=== PATIENT | female | born 1945 | race Caucasian/White ===

== ENCOUNTER 2018-01-09 16:42 | Observation (INO) | payer MEDICARE ==
[~2018-01-09] VITALS: Ht 152.4 cm; Wt 91.6 kg
[~2018-01-09 16:42] MED LIST: ADV250 IH; ASPI-555 PO; BIOTIN PO; CETI-101 PO; COQ10 PO; DIGOXIN PO; ESCITALOPRAM PO; FLUTICASONE NASAL; FURO-152 PO; LORA2TAB2 PO; LUTE20TA PO; LYRICA PO; MONT10TA21 PO; OMEG1CAP31 PO; PREG150C PO; RANI150T7 PO; TIOT18CA3 IH; [UNRECOGNIZED DRUG - OTHER] PO; [UNRECOGNIZED DRUG - OTHER] PO
[2018-01-09 17:37] LABS: INR 0.98 (0.85-1.15); PARTIAL THROMBOPLASTIN TIME 24.4 SEC (26.3-35.5); PROTHROMBIN TIME 10.3 SEC (9.6-11.6)
[2018-01-09 17:39] LABS: BASOPHILS % (AUTO) 0.7 % (0.0-5.0); EOSINOPHILS % (AUTO) 2.6 % (0.0-8.0); HEMATOCRIT 40.6 % (36-48); MEAN CORPUSCULAR HEMOGLOBIN 26.9 pg (27.0-33.0); MEAN CORPUSCULAR HGB CONC 33.1 g/dL (32.0-36.0); MEAN CORPUSCULAR VOLUME 81.3 fL (79-99); MONOCYTES % (AUTO) 7.6 % (3.0-13.0); NEUTROPHILS % (AUTO) 53.1 % (40.0-77.0); NUCLEATED RED BLOOD CELLS 0.1 % (0.0-0.19); RED CELL DISTRIBUTION WIDTH 15.9 % (11.0-15.5); WHITE BLOOD COUNT (AUTO) 8.8 K/uL (4.8-10.8)
[2018-01-09 17:41] LABS: CREATININE 0.5 mg/dL (0.5-1.5); POTASSIUM 3.7 mmol/L (3.5-5.1)
[2018-01-09 17:56] LABS: ALBUMIN 3.4 g/dL (3.5-5.0); BILIRUBIN,TOTAL 0.7 mg/dL (0.2-1.0); CREATINE KINASE MB 0.9 ng/mL (0.5-3.6); TOTAL PROTEIN, SERUM 7.2 g/dL (6.0-8.3)
[2018-01-09 18:10] LABS: PLATELET COUNT (AUTO) 228 K/uL (130-400)
[2018-01-09 19:04] LABS: APPEARANCE,URINE Clear (CLEAR); BILIRUBIN,URINE Negative (NEGATIVE); COLOR,URINE Yellow (YELLOW); GLUCOSE, URINE (UA) Negative (NEGATIVE); KETONES,URINE Negative (NEGATIVE); LEUKOCYTE ESTERASE ,URINE Trace (NEGATIVE); NITRATE,URINE Negative (NEGATIVE); OCCULT BLOOD,URINE Negative (NEGATIVE); PROTEIN,URINE Negative (NEGATIVE)
[2018-01-09 19:41] LABS: BACTERIA,URINE Rare /HPF (None Seen); RBC,URINE 0-1 /HPF (0-1); SQUAMOUS EPITHELIAL CELL,UR Rare /LPF (0-2); TRANSITIONAL EPI CELLS,URINE Rare /LPF (None Seen); WBC,URINE 0-1 /HPF (0-1)
[2018-01-09] MEDS ORDERED: SODIUM CHLORIDE 0.9% 1000ML 1,000 ML IV ONE (22:58)
[2018-01-09] MEDS ORDERED: ASPIRIN 325 MG TABLET ONE (22:58)
[2018-01-09 23:57] LABS: CREATINE KINASE MB 0.9 ng/mL (0.5-3.6); CREATINE KINASE, TOTAL 64 U/L (21-232); MYOGLOBIN 41 ng/mL (10-92); TROPONIN I < 0.04 ng/mL (0.00-0.06)
[2018-01-10] MEDS ORDERED: POTASSIUM CHLORIDE 10% ELIXIR 20 MEQ/15 ML UDCUP PO PRN (01:30)
[2018-01-10] MEDS ORDERED: IPRATROPIUM/ALBUTEROL SULFATE 3 ML SOLUTION IH PRN (01:30)
[2018-01-10] MEDS ORDERED: CLONIDINE HCL 0.1 MG TABLET PO PRN (01:30)
[2018-01-10] MEDS ORDERED: LACTULOSE 20 GM/30 ML UDCUP PO PRN (01:30)
[2018-01-10] MEDS ORDERED: HYDRALAZINE HCL 20 MG/ML VIAL IV PRN (01:30)
[2018-01-10] MEDS ORDERED: POTASSIUM CHLORIDE 20 MEQ ERTAB PO PRN (01:30)
[2018-01-10] MEDS ORDERED: ONDANSETRON HCL 4 MG/2 ML VIAL IVP PRN (01:30)
[2018-01-10] MEDS ORDERED: LIDOCAINE HCL-MPF 1% 2ML VIAL IVP PRN (01:30)
[2018-01-10] MEDS ORDERED: ACETAMINOPHEN 325 MG TAB PO PRN (01:30)
[2018-01-10] MEDS ORDERED: MORPHINE SULFATE 2 MG/ML 1ML SYG IVP PRN ×2 (01:30)
[2018-01-10] MEDS ORDERED: POTASSIUM CHLORIDE 20MEQ/100ML 100 ML IV PRN (01:30)
[2018-01-10 05:56] LABS: BASOPHILS % (AUTO) 0.3 % (0.0-5.0); EOSINOPHILS % (AUTO) 2.7 % (0.0-8.0); HEMATOCRIT 36.3 % (36-48); LYMPHOCYTES % (AUTO) 35.4 % (21.0-51.0); MEAN CORPUSCULAR HEMOGLOBIN 27.9 pg (27.0-33.0); MEAN CORPUSCULAR HGB CONC 34.3 g/dL (32.0-36.0); MEAN CORPUSCULAR VOLUME 81.3 fL (79-99); MONOCYTES % (AUTO) 9.1 % (3.0-13.0); NEUTROPHILS % (AUTO) 52.5 % (40.0-77.0); PLATELET COUNT (AUTO) 226 K/uL (130-400); RED BLOOD CELL COUNT(AUTO) 4.47 MIL/uL (4.00-5.50); RED CELL DISTRIBUTION WIDTH 15.9 % (11.0-15.5); WHITE BLOOD COUNT (AUTO) 7.8 K/uL (4.8-10.8)
[2018-01-10 06:27] LABS: CARBON DIOXIDE 30 mmol/L (21-32); CHLORIDE 107 mmol/L (101-111); CREATINE KINASE MB < 0.5 ng/mL (0.5-3.6); CREATINE KINASE, TOTAL 48 U/L (21-232); CREATININE 0.6 mg/dL (0.5-1.5); GLOMERULAR FILTR. RATE CALC 105 mL/min (>60); GLUCOSE,RANDOM 111 mg/dL (70-105); MYOGLOBIN 33 ng/mL (10-92); POTASSIUM 3.3 mmol/L (3.5-5.1); SODIUM SERUM 143 mmol/L (136-145); TROPONIN I < 0.04 ng/mL (0.00-0.06); UREA NITROGEN, BLOOD 14 mg/dL (7-18)
[2018-01-10 08:40] VITALS: BP 151/78
[2018-01-10] MEDS ORDERED: SODIUM CHLORIDE 0.9% 1000ML 1,000 ML IV SCH (09:00)
[2018-01-10] MEDS: FAMOTIDINE 20MG TAB 20 MG TAB PO SCH ×2 (09:00→22:37)
[2018-01-10] MEDS: ASPIRIN 325 MG TABLET PO SCH (09:38)
[2018-01-10] MEDS ORDERED: ISOS30TA6 PO (09:52)
[2018-01-10] MEDS ORDERED: FLUT1DIS3 IH (09:52)
[2018-01-10] MEDS ORDERED: PREG225C PO (09:52)
[2018-01-10] MEDS ORDERED: SERT100T PO (09:52)
[2018-01-10] MEDS ORDERED: LORA0.5T83 PO (09:52)
[2018-01-10] MEDS ORDERED: MONT10TA24 PO (09:52)
[2018-01-10] MEDS ORDERED: FURO20TA4 PO (09:52)
[2018-01-10] MEDS ORDERED: OMEG-75 PO (09:52)
[2018-01-10] MEDS ORDERED: SERT100T12 PO (09:52)
[2018-01-10] MEDS ORDERED: ALBU8.5H8 IH (09:52)
[2018-01-10] MEDS ORDERED: RANI150C4 PO (09:52)
[2018-01-10] MEDS ORDERED: DIGO125T87 PO (09:52)
[2018-01-10] MEDS ORDERED: TIOT4MIS2 IH (09:52)
[2018-01-10] MEDS ORDERED: LUTE20TA PO (09:56)
[2018-01-10] MEDS ORDERED: FUROSEMIDE 20 MG TABLET PO PRN (10:45)
[2018-01-10 11:50] VITALS: BP 112/40
[2018-01-10 11:51] VITALS: BP_SYST 112; BP_SYST 130; BP_DIAS 68; BP_DIAS 71
[2018-01-10] MEDS: IPRATROPIUM 0.5 MG/2.5 ML INH IH SCH ×2 (12:32→19:24)
[2018-01-10] MEDS: ALBUTEROL SULFATE 0.083% 2.5 MG/3 ML INH IH SCH ×2 (12:32→19:24)
[2018-01-10] MEDS: BUDESONIDE 0.5 MG/2 ML INH IH SCH (19:24)
[2018-01-10 20:18] VITALS: BP 160/75
[2018-01-10 20:45] VITALS: BP_SYST 121; BP_SYST 132; BP_SYST 155; BP_DIAS 61; BP_DIAS 77; BP_DIAS 88
[2018-01-10] MEDS ORDERED: MONTELUKAST SODIUM 10 MG TAB PO SCH (21:00)
[2018-01-10] MEDS ORDERED: DIGOXIN 125 MCG TABLET PO SCH (21:00)
[2018-01-10] MEDS ORDERED: LORAZEPAM 1 MG TABLET PO SCH (21:00)
[2018-01-10] MEDS: FISH OIL 1000 MG/CAP PO SCH (22:36)
[2018-01-10] MEDS: PREGABALIN 100 MG CAPSULE PO SCH (22:37)
[2018-01-10] MEDS: PREGABALIN 25 MG CAP PO SCH (22:37)
[2018-01-11 00:43] VITALS: BP 127/64
[2018-01-11 03:27] VITALS: BP 114/57
[2018-01-11 06:05] LABS: BASOPHILS % (AUTO) 0.7 % (0.0-5.0); EOSINOPHILS % (AUTO) 2.1 % (0.0-8.0); HEMATOCRIT 36.6 % (36-48); LYMPHOCYTES % (AUTO) 42.4 % (21.0-51.0); MEAN CORPUSCULAR HEMOGLOBIN 26.4 pg (27.0-33.0); MEAN CORPUSCULAR HGB CONC 32.4 g/dL (32.0-36.0); MEAN CORPUSCULAR VOLUME 81.7 fL (79-99); MONOCYTES % (AUTO) 7.6 % (3.0-13.0); NEUTROPHILS % (AUTO) 47.2 % (40.0-77.0); NUCLEATED RED BLOOD CELLS 0.1 % (0.0-0.19); PLATELET COUNT (AUTO) 244 K/uL (130-400); RED BLOOD CELL COUNT(AUTO) 4.49 MIL/uL (4.00-5.50); RED CELL DISTRIBUTION WIDTH 15.9 % (11.0-15.5); WHITE BLOOD COUNT (AUTO) 8.5 K/uL (4.8-10.8)
[2018-01-11 06:26] LABS: CREATININE 0.5 mg/dL (0.5-1.5); POTASSIUM 3.6 mmol/L (3.5-5.1)
[2018-01-11] MEDS: BUDESONIDE 0.5 MG/2 ML INH IH SCH (06:27)
[2018-01-11] MEDS: ALBUTEROL SULFATE 0.083% 2.5 MG/3 ML INH IH SCH ×3 (06:27→11:03)
[2018-01-11] MEDS: IPRATROPIUM 0.5 MG/2.5 ML INH IH SCH ×2 (06:27→10:58)
[2018-01-11 07:50] VITALS: BP 135/74
[2018-01-11] MEDS ORDERED: LUTEIN 20 MG PO SCH (09:00)
[2018-01-11] MEDS ORDERED: ISOSORBIDE MONO 30MG TAB SR PO SCH (09:00)
[2018-01-11] MEDS: FAMOTIDINE 20MG TAB 20 MG TAB PO SCH (10:29)
[2018-01-11] MEDS: FISH OIL 1000 MG/CAP PO SCH (10:29)
[2018-01-11] MEDS: PREGABALIN 100 MG CAPSULE PO SCH (10:29)
[2018-01-11] MEDS: ASPIRIN 325 MG TABLET PO SCH (10:29)
[2018-01-11] MEDS: PREGABALIN 25 MG CAP PO SCH (10:29)
[2018-01-11 11:58] VITALS: BP_SYST 121; BP_SYST 15; BP_DIAS 73
== END 2018-01-11 16:49 | disposition home or self-care (01) ==
LOC: EDH 16:42 → EDHIP 20:44 → 4BH 01-10 08:16
PROVIDERS: ADMIT Family Medicine; ATTEND Family Medicine
DX: R55 Syncope and collapse (principal); I42.9 Cardiomyopathy, unspecified; G62.9 Polyneuropathy, unspecified; I10 Essential (primary) hypertension; J44.9 Chronic obstructive pulmonary disease, unspecified; F32.9 Major depressive disorder, single episode, unspecified; W18.2XXA Fall in (into) shower or empty bathtub, initial encounter; Y93.89 Activity, other specified; Y92.89 Other specified places as the place of occurrence of the external cause; Y99.8 Other external cause status; Z95.810 Presence of automatic (implantable) cardiac defibrillator
CPT/HCPCS: 36415 ×3; 70450; 71045; 71250; 72125; 73502; 74176; 80048 ×2; 80053; 81001; 82550 ×3; 82553 ×3; 82948; 83874 ×2; 84484 ×3; 85025 ×3; 85610; 85730; 93005 ×3; 93306; 93880; 94640 ×6; 94664; 96360; 96361; 97116; 97161; 99285; G0378 ×44; G8978; G8979; G8980; G8981; G8982; G8983; J7030 ×2

== ENCOUNTER → 2019-10-22 | Outpatient (CLI) | payer MEDICARE ==
[~2019-10-22] MED LIST changes: -ADV250 IH; +ALBU8.5H8 IH; -ASPI-555 PO; -BIOTIN PO; -CETI-101 PO; -COQ10 PO; +DIGO125T71 PO; -DIGOXIN PO; -ESCITALOPRAM PO; +FLUT1DIS3 IH; -FLUTICASONE NASAL; -FURO-152 PO; +FURO20TA4 PO; +ISOS30TA6 PO; +LORA0.5T83 PO; -LORA2TAB2 PO; -LYRICA PO; -MONT10TA21 PO; +MONT10TA24 PO; +OMEG-75 PO; -OMEG1CAP31 PO; -PREG150C PO; +PREG225C PO; +RANI150C4 PO; -RANI150T7 PO; -TIOT18CA3 IH; +TIOT4MIS2 IH; -[UNRECOGNIZED DRUG - OTHER] PO; -[UNRECOGNIZED DRUG - OTHER] PO
== END | disposition home or self-care (01) ==
LOC: RAH 08:33
PROVIDERS: ATTEND Internal Medicine Gastroenterology
DX: K21.9 Gastro-esophageal reflux disease without esophagitis (principal); R13.10 Dysphagia, unspecified; Z98.84 Bariatric surgery status
CPT/HCPCS: 74240

== ENCOUNTER → 2021-10-15 | Outpatient (CLI) | payer MEDICARE ==
[~2021-10-15] MED LIST changes: -ISOS30TA6 PO; +ISOS30TA92 PO; +MONT-39 PO; -MONT10TA24 PO; +OMEG-189 PO; -OMEG-75 PO
== END | disposition home or self-care (01) ==
LOC: RAH 11:32
PROVIDERS: ATTEND Internal Medicine Gastroenterology
DX: K30 Functional dyspepsia (principal)
CPT/HCPCS: 78264; A9541

== ENCOUNTER 2023-03-11 12:01 | Emergency (ER) | payer MEDICARE ==
[~2023-03-11] VITALS: Ht 147.3 cm; Wt 78.9 kg
[2023-03-11] MEDS ORDERED: TRAM50TA4 PO (12:24)
[2023-03-11 12:55] LABS: BASOPHILS % (AUTO) 0.6 % (0.0-5.0); EOSINOPHILS % (AUTO) 1.2 % (0.0-8.0); HEMATOCRIT 37.1 % (36-48); LYMPHOCYTES % (AUTO) 38.3 % (21.0-51.0); MEAN CORPUSCULAR HEMOGLOBIN 23.1 pg (27.0-33.0); MEAN CORPUSCULAR HGB CONC 30.5 g/dL (32.0-36.0); MEAN CORPUSCULAR VOLUME 75.9 fL (79-99); MONOCYTES % (AUTO) 8.8 % (3.0-13.0); NEUTROPHILS % (AUTO) 50.9 % (40.0-77.0); PLATELET COUNT (AUTO) 278 K/uL (130-400); RED BLOOD CELL COUNT(AUTO) 4.89 MIL/uL (4.00-5.50); RED CELL DISTRIBUTION WIDTH 18.1 % (11.0-15.5); WHITE BLOOD COUNT (AUTO) 6.5 K/uL (4.8-10.8)
[2023-03-11 13:06] LABS: CREATININE 0.6 mg/dL (0.5-1.5); POTASSIUM 4.3 mmol/L (3.5-5.1)
[2023-03-11 13:11] LABS: ALBUMIN 3.6 g/dL (3.5-5.0); TOTAL PROTEIN, SERUM 7.3 g/dL (6.0-8.3)
[2023-03-11 13:28] LABS: B-TYPE NATRIURETIC PEPTIDE 96 pg/mL (0-100)
[2023-03-11 15:04] VITALS: BP 145/67
== END 2023-03-11 15:04 | disposition home or self-care (01) ==
LOC: EDH 12:01
DX: R42 Dizziness and giddiness (principal); E11.9 Type 2 diabetes mellitus without complications; E78.00 Pure hypercholesterolemia, unspecified; Z79.51 Long term (current) use of inhaled steroids; Z79.899 Other long term (current) drug therapy; Z88.0 Allergy status to penicillin; Z88.2 Allergy status to sulfonamides; Z90.49 Acquired absence of other specified parts of digestive tract; Z95.810 Presence of automatic (implantable) cardiac defibrillator
CPT/HCPCS: 36415; 70450; 71045; 80053; 83880; 84484; 85025; 93005

== ENCOUNTER 2023-06-10 06:28 | Day surgery (SDC) | payer MEDICARE ==
[2023-06-09 12:20] LABS: BASOPHILS % (AUTO) 0.5 % (0.0-5.0); EOSINOPHILS % (AUTO) 1.2 % (0.0-8.0); HEMATOCRIT 45.7 % (36-48); LYMPHOCYTES % (AUTO) 37.9 % (21.0-51.0); MEAN CORPUSCULAR HGB CONC 31.3 g/dL (32.0-36.0); MEAN CORPUSCULAR VOLUME 83.1 fL (79-99); MONOCYTES % (AUTO) 8.9 % (3.0-13.0); NEUTROPHILS % (AUTO) 51.2 % (40.0-77.0); PLATELET COUNT (AUTO) 266 K/uL (130-400); RED CELL DISTRIBUTION WIDTH 16.7 % (11.0-15.5); WHITE BLOOD COUNT (AUTO) 7.4 K/uL (4.8-10.8)
[2023-06-09 12:31] LABS: INR 0.98 (0.85-1.15); PROTHROMBIN TIME 11.4 SEC (9.6-11.6)
[2023-06-09 12:32] LABS: PARTIAL THROMBOPLASTIN TIME 30.2 SEC (26.3-35.5)
[2023-06-09 12:42] LABS: CREATININE 0.7 mg/dL (0.5-1.5); POTASSIUM 3.9 mmol/L (3.5-5.1)
[2023-06-09 12:44] VITALS: BP 132/72; PULSE 64; RESP 16
[2023-06-09 12:53] LABS: B-TYPE NATRIURETIC PEPTIDE 426 pg/mL (0-100)
[2023-06-10] VITALS (9 sets, daily range): BP systolic 104–126; BP diastolic 54–64; PULSE 64–74; RESP 13–16
[~2023-06-10] VITALS: Ht 149.9 cm; Wt 72.3 kg
[~2023-06-10 06:28] MED LIST changes: +APIX5TAB PO; +BUSP10TA3 PO; +CYAN1TAB44 PO; +DOCU100C33 PO; +DULO20CA18 PO; +FLUT1BLS9 IH; -FLUT1DIS3 IH; -FURO20TA4 PO; +FURO20TA6 PO; -ISOS30TA92 PO; +ISOS60TA77 PO; -LORA0.5T83 PO; -LUTE20TA PO; +MIDO10TA PO; -OMEG-189 PO; +PANT40TA54 PO; +PREG200C28 PO; -PREG225C PO; -RANI150C4 PO; +SERT-440 PO; +SUCR1TAB PO; +TIOT18CA3 IH; -TIOT4MIS2 IH; +VITAMIN D PO
[2023-06-10] MEDS ORDERED: 0.9%NACL 1000ML 1,000 ML IV ONE (07:33)
[2023-06-10] MEDS ORDERED: LIDOCAINE HCL 1% MDV 50ML VIAL ONE (09:02)
[2023-06-10] MEDS ORDERED: CEFAZOLIN SODIUM 1 GM VIAL ONE (09:03)
[2023-06-10] MEDS ORDERED: MIDAZOLAM HCL 1 MG/ML 2ML VIAL ONE (09:03)
[2023-06-10] MEDS ORDERED: BUPIVACAINE/PF 0.25% 10ML VIAL IJ ONE (09:03)
[2023-06-10] MEDS ORDERED: FENTANYL CITRATE PF 50 MCG/1 ML 2ML VIAL ONE (09:03)
[2023-06-10] MEDS ORDERED: VANCOMYCIN 1G/250ML KIT 500 ML IV ONE (09:19)
[2023-06-10] MEDS ORDERED: OCTYL 2-CYANOACRYLATE 1 EACH TP ONE (10:18)
[2023-06-10] MEDS ORDERED: ACETAMINOPHEN WITH CODEINE 1 TAB TAB PO PRN ×2 (10:30)
== END 2023-06-10 15:10 | disposition home or self-care (01) ==
LOC: DAH 06:28
PROVIDERS: ATTEND Internal Medicine Interventional Cardiology
DX: I48.19 Other persistent atrial fibrillation (principal); I35.0 Nonrheumatic aortic (valve) stenosis; E11.40 Type 2 diabetes mellitus with diabetic neuropathy, unspecified; F32.A Depression, unspecified; Z88.0 Allergy status to penicillin; Z88.1 Allergy status to other antibiotic agents; Z88.2 Allergy status to sulfonamides; Z20.822 Contact with and (suspected) exposure to COVID-19; Z79.01 Long term (current) use of anticoagulants; Z79.899 Other long term (current) drug therapy; Z87.891 Personal history of nicotine dependence; Z98.890 Other specified postprocedural states
CPT/HCPCS: 80048; 83880; 85025; 85610; 85730; 36415; 93005; 33228; C1785; J3010; J7030; J2250; J3370; J3490 ×2; A4215; A4222; A4221; A4663; A4216; A4606; A4223 ×3; 99156; 99157; J0690

== ENCOUNTER → 2023-06-17 | Outpatient (CLI) | payer MEDICARE | END | disposition home or self-care (01) | LOC: RAH 09:27 | PROVIDERS: ATTEND Internal Medicine Gastroenterology | DX: K21.9 Gastro-esophageal reflux disease without esophagitis (principal); K22.9 Disease of esophagus, unspecified; R13.10 Dysphagia, unspecified; Z98.890 Other specified postprocedural states | CPT/HCPCS: 74220 ==